=== PATIENT | female | born 1940 | race Caucasian/White ===

== ENCOUNTER 2021-05-28 18:44 | Inpatient (IN) ==
[2021-05-28] MEDS ORDERED: SODIUM CHLORIDE 0.9% 1000ML 1,000 ML IV STA (20:37)
[2021-05-28] MEDS ORDERED: SODIUM CHLORIDE 0.9% 500 ML IV STA (20:37)
[2021-05-28] MEDS ORDERED: PANTOprazole 80 MG in DEXTROSE 5% 100 ML IV ONE (21:00)
[2021-05-28] MEDS ORDERED: FAMOTIDINE 20MG/5ML IV PUSH IV STA (21:00)
[2021-05-28] MEDS ORDERED: PANTOPRAZOLE BOLUS/DRIP 1 EA IV STA (21:00)
[2021-05-28 21:18] LABS: Basophils # (auto) 0.01 K/uL (0-0.2); Basophils % (auto) 0.2 %; Eosinophils # (auto) 0.06 K/uL (0-0.5); Eosinophils % (auto) 0.9 %; Hematocrit (blood only) 29.7 % (37-47); Lymphocytes # (auto) 2.41 K/uL (1.2-3.4); Lymphocytes % (auto) 36.4 %; Mean Corpuscular Hemoglobin 32.7 pg (25-34); Mean Corpuscular Hgb Conc 33.7 g/dL (32-36); Mean Corpuscular Volume 97.1 fL (80-100); Mean Platelet Volume 9.5 fL (7.4-10.4); Monocytes # (auto) 0.62 K/uL (0.11-0.59); Monocytes % (auto) 9.4 %; Neutrophils # (auto) 3.52 K/uL (1.4-6.5); Neutrophils % (auto) 53.1 %; Platelet Count 223 K/uL (130-400); RDW Coefficient of Variation 12.7 % (11.5-14.5); RDW Standard Deviation 45.2 fL (36.4-46.3); Red Blood Count 3.06 M/uL (4.2-5.4); White Blood Count 6.62 K/uL (4.8-10.8)
[2021-05-28 21:30] LABS: Prothrombin Time 10.3 Seconds (9.0-12.0)
--- NOTE | 2021-05-28 21:32 | Emergency Department Note ---
Impression & Plan Upper gastrointestinal hemorrhage ED Provider Note INFORMANT: Patient ED PROVIDER(S): Aaron White MD CHIEF COMPLAINT: black stool PLAN: Disposition: admitted Condition: Good Outpatient prescription management: none Referral: none MEDICAL DECISION MAKING: Patient had cc of black stool. Heme positive rectal. Started on Protonix and pepcid. CBC revealed mild anemia. Elevated BUN on chem panel. Needs admission. Consult placed with Dr. Diaz. Patient and family educated. Pt admitted. Triage Nursing notes reviewed and agree them. Vital Signs: reviewed and remarkable for tachycardia Differential diagnosis: Diverticulosis, AVM, coagulopathy, colitis, inflammatory bowel disease, malignancy, Norma-Frank tear, esophagitis, peptic ulcer disease, variceal bleed, gastritis, epistaxis, fissure, hemorrhoids, as well as other pathologies. Diagnostics interpreted by me: ECG: Rate:97 Rhythm:NSR [place]:nml QRS:nml ST segements:nml Other:no pac or pvc Cardiac Monitoring: Cardiac monitoring ordered by me: The patient was placed on continuous cardiac monitoring and observed. It revealed a ST at 121 beats per minute without ectopy or evidence of dysrhythmia. Imaging studies: CT abd consistent with enteritis. HPI: The patient is a 81 year old female who presents to the Emergency Room with complaints of black stool. This started this morning and is persisting throughout the day. The patient also notes the following associated symptoms, feeling mildly weak and bloated. The patient has found no relieving factors. Current pain is rated as 0/10. Patient's history of gastritis. She takes a PPI occasionally. Denies any other NSAID use. Does take aspirin. No anticoagulati on. Pt denies LOC, headache, fevers, chills, diaphoresis, visual changes, neck pain, chest pain, breathing difficulties, nausea, vomiting, abdominal pain, back pain, hematochezia, urinary symptoms, numbness, lymphadenopathy, rash, or other complaints. ROS: See above HPI for pertinent positives & negatives. A total of 10 systems reviewed and were otherwise negative. PAST MEDICAL HISTORY:See Below , gastritis PAST SURGICAL HISTORY:See Below, FAMILY HISTORY:See Below SOCIAL HISTORY:See Below, non-smoker HOME MEDICATIONS:See Below ALLERGIES:See Below VITALS:See Below PHYSICAL EXAMINATION: GENERAL: Awake, alert, tired-appearing, in no distress HENT: Normocephalic, atraumatic. Oropharynx unremarkable. EYES: Normal conjunctiva. Sclera non-icteric. NECK: Inspection normal. Non-tender. Supple. No nuchal rigidity. FROM. No masses. RESPIRATORY: Clear to auscultation. No wheezes. No rales. Normal respiratory effort. CARDIAC: Borderline tachycardic rate. Normal rhythm. No murmurs. No rubs. Extremities warm and well perfused. Pulses equal. No JVD. GI: Soft, non-distended. No tenderness to palpation. No rebound or guarding. No masses. RECTAL: Black stool. Hemoccult positive.. MUSCULOSKELETAL: Atraumatic. Chest examination reveals no tenderness. The back is symmetrical on inspection without obvious abnormality. There is no CVA tenderness to palpation. No joint edema. LOWER EXTREMITIES: Calves are equal size bilaterally and non-tender. No edema. No discoloration. NEURO: Normal sensorium. No sensory or motor deficits noted. SKIN: No rash or jaundice noted. Aaron White MD Past Med/Surg History Social History Smoking Status: Never smoker Hx Alcohol Use: Yes Hx Substance Use: No Preferred Language: Tunisian Communication Ability: Effective [employer] Required: No Beliefs That Will Affect Care: None Current Living Situation: Alone Other Information That Helps Us Care for You: No Feels Safe at Home: Yes Safety Concerns: Feels Safe At This Time Assistive Devices: Glasses Allergies Allergies Allergy/AdvReac Type Severity Reaction Status Date / Time STEROIDS Allergy Unknown Uncoded 05/28/21 22:26 Home Meds Home Medications Medication Instructions Recorded Confirmed aspirin 81 mg tablet,delayed 81 mg PO DAILY 05/28/21 05/28/21 release atorvastatin 20 mg tablet 20 mg PO DAILY 05/28/21 05/28/21 calcium carbonate 600 mg calcium 600 mg PO DAILY 05/28/21 05/28/21 (1,500 mg) tablet ergocalciferol (vitamin D2) 1,250 1,250 mcg PO WK 05/28/21 05/28/21 mcg (50,000 unit) capsule (Vitamin D2) garlic 1,000 mg capsule 1,000 mg PO BID 05/28/21 05/28/21 glucosamine-chondroitin 250 mg-200 1 tab PO DAILY 05/28/21 05/28/21 mg tablet (Osteo Bi-Flex) meloxicam 15 mg tablet 15 mg PO DAILY 05/28/21 05/28/21 omega-3 fatty acids 0 mg PO DAILY 05/28/21 05/28/21 Results & Data (ED) Vital Signs Vital Signs - 24 hr 05/28/21 19:02 05/28/21 20:41 05/28/21 21:38 Temperature 37 C Temperature Source Temporal Artery Scan Pulse Rate 127 H 88 Pulse Rate [Brachial] 88 Respiratory Rate 18 20 20 Respiratory Effort / Characteristics Non-Labored Spontaneous Respiratory Depth Normal Respiratory Pattern Regular Blood Pressure 133/71 Blood Pressure [Left Arm] 148/69 H Blood Pressure Mean 91 Blood Pressure Mean [Left Arm] 95 Blood Pressure Position Sitting Pulse Oximetry 100 100 95 Oxygen Delivery Method Room Air Room Air Room Air Sepsis Recent Fever Within 48 Hours No Sepsis New/Unexplained Change in Mental Status No Sepsis Action Taken by Nursing No Action Required 05/28/21 22:30 Temperature Temperature Source Pulse Rate Pulse Rate [Brachial] 99 H Respiratory Rate 20 Respiratory Effort / Characteristics Respiratory Depth Respiratory Pattern Blood Pressure Blood Pressure [Left Arm] 148/69 H Blood Pressure Mean Blood Pressure Mean [Left Arm] 95 Blood Pressure Position Pulse Oximetry 98 Oxygen Delivery Method Sepsis Recent Fever Within 48 Hours Sepsis New/Unexplained Change in Mental Status Sepsis Action Taken by Nursing Laboratory Data Result diagrams: 05/29/21 11:02 05/29/21 05:18 Lab Results 05/28/21 05/28/21 05/28/21 Range/Units 20:51 20:51 20:51 WBC 6.62 (4.8-10.8) K/uL RBC 3.06 L (4.2-5.4) M/uL Hgb 10.0 L (12.0-16.0) g/dL Hct 29.7 L (37-47) % MCV 97.1 (80-100) fL MCH 32.7 (25-34) pg MCHC 33.7 (32-36) g/dL RDW Std Deviation 45.2 (36.4-46.3) fL RDW Coeff of Stan 12.7 (11.5-14.5) % Plt Count 223 (130-400) K/uL MPV 9.5 (7.4-10.4) fL Immature Gran % (Auto) 0.0 % Neut % (Auto) 53.1 % Lymph % (Auto) 36.4 % [place] % (Auto) 9.4 % Eos % (Auto) 0.9 % Baso % (Auto) 0.2 % Neut # (Auto) 3.52 (1.4-6.5) K/uL Lymph # (Auto) 2.41 (1.2-3.4) K/uL [place] # (Auto) 0.62 H (0.11-0.59) K/uL Eos # (Auto) 0.06 (0-0.5) K/uL Baso # (Auto) 0.01 (0-0.2) K/uL Immature Gran # (Auto) 0.00 (0.00-0.02) K/uL PT 10.3 (9.0-12.0) Seconds INR 1.0 (0.9-1.1) Sodium 139 (136-145) mmol/L Potassium 4.3 (3.5-5.1) mmol/L Chloride 109 H (98-107) mmol/L Carbon Dioxide 24 (21-32) mmol/L Anion Gap 6.0 (3-11) BUN 48 H (7-18) mg/dl Creatinine 0.83 (0.6-1.2) mg/dl Est Cr Clr Drug Dosing 47.1 ml/min Est GFR ( Amer) 76.6 ml/min Est GFR (Non-Af Amer) 66.1 ml/min BUN/Creatinine Ratio 58.1 H (10-20) Glucose 108 H (70-99) mg/dl Lactate (0.4-2.0) mmol/L Calcium 9.3 (8.5-10.1) mg/dl Total Bilirubin 0.5 (0.2-1) mg/dl AST 23 (15-37) U/L ALT 23 (12-78) U/L Alkaline Phosphatase 57 (45-117) U/L Total Protein 6.8 (6.4-8.2) gm/dl Albumin 3.5 (3.4-5.0) gm/dl Globulin 3.3 (2.5-4.0) gm/dl Albumin/Globulin Ratio 1.1 (0.9-2) Lipase 114 (73-393) U/L Urine Color Urine Appearance (Clear) Urine pH (4.5-7.5) Ur Specific [place] (1.000-1.030) Urine Protein (Negative) Urine Glucose (UA) (Negative) Urine Ketones (Negative) Urine Blood (Negative) Urine Nitrite (Negative) Urine Bilirubin (Negative) Urine Urobilinogen (Negative) Ur Leukocyte Esterase (Negative) Urine WBC (Auto) (0-5) /hpf Urine RBC (Auto) (0-4) /hpf U Hyaline Cast (Auto) (0-5) /lpf U Epithel Cells (Auto) (0-5) /lpf Urine Bacteria (Auto) (Negative) COVID-19 Eval Order SARS-CoV-2 (PCR) (Negative) Blood Type Antibody Screen Crossmatch 05/28/21 05/28/21 05/28/21 Range/Units 20:51 21:05 21:05 WBC (4.8-10.8) K/uL RBC (4.2-5.4) M/uL Hgb (12.0-16.0) g/dL Hct (37-47) % MCV (80-100) fL MCH (25-34) pg MCHC (32-36) g/dL RDW Std Deviation (36.4-46.3) fL RDW Coeff of Stan (11.5-14.5) % Plt Count (130-400) K/uL MPV (7.4-10.4) fL Immature Gran % (Auto) % Neut % (Auto) % Lymph % (Auto) % [place] % (Auto) % Eos % (Auto) % Baso % (Auto) % Neut # (Auto) (1.4-6.5) K/uL Lymph # (Auto) (1.2-3.4) K/uL [place] # (Auto) (0.11-0.59) K/uL Eos # (Auto) (0-0.5) K/uL Baso # (Auto) (0-0.2) K/uL Immature Gran # (Auto) (0.00-0.02) K/uL PT (9.0-12.0) Seconds INR (0.9-1.1) Sodium (136-145) mmol/L Potassium (3.5-5.1) mmol/L Chloride (98-107) mmol/L Carbon Dioxide (21-32) mmol/L Anion Gap (3-11) BUN (7-18) mg/dl Creatinine (0.6-1.2) mg/dl Est Cr Clr Drug Dosing ml/min Est GFR ( Amer) ml/min Est GFR (Non-Af Amer) ml/min BUN/Creatinine Ratio (10-20) Glucose (70-99) mg/dl Lactate 1.3 (0.4-2.0) mmol/L Calcium (8.5-10.1) mg/dl Total Bilirubin (0.2-1) mg/dl AST (15-37) U/L ALT (12-78) U/L Alkaline Phosphatase (45-117) U/L Total Protein (6.4-8.2) gm/dl Albumin (3.4-5.0) gm/dl Globulin (2.5-4.0) gm/dl Albumin/Globulin Ratio (0.9-2) Lipase (73-393) U/L Urine Color Urine Appearance (Clear) Urine pH (4.5-7.5) Ur Specific [place] (1.000-1.030) Urine Protein (Negative) Urine Glucose (UA) (Negative) Urine Ketones (Negative) Urine Blood (Negative) Urine Nitrite (Negative) Urine Bilirubin (Negative) Urine Urobilinogen (Negative) Ur Leukocyte Esterase (Negative) Urine WBC (Auto) (0-5) /hpf Urine RBC (Auto) (0-4) /hpf U Hyaline Cast (Auto) (0-5) /lpf U Epithel Cells (Auto) (0-5) /lpf Urine Bacteria (Auto) (Negative) COVID-19 Eval Order Covid19 at [facility] SARS-CoV-2 (PCR) NEGATIVE (Negative) Blood Type Antibody Screen Crossmatch 05/28/21 05/28/21 Range/Units 21:37 21:51 WBC (4.8-10.8) K/uL RBC (4.2-5.4) M/uL Hgb (12.0-16.0) g/dL Hct (37-47) % MCV (80-100) fL MCH (25-34) pg MCHC (32-36) g/dL RDW Std Deviation (36.4-46.3) fL RDW Coeff of Stan (11.5-14.5) % Plt Count (130-400) K/uL MPV (7.4-10.4) fL Immature Gran % (Auto) % Neut % (Auto) % Lymph % (Auto) % [place] % (Auto) % Eos % (Auto) % Baso % (Auto) % Neut # (Auto) (1.4-6.5) K/uL Lymph # (Auto) (1.2-3.4) K/uL [place] # (Auto) (0.11-0.59) K/uL Eos # (Auto) (0-0.5) K/uL Baso # (Auto) (0-0.2) K/uL Immature Gran # (Auto) (0.00-0.02) K/uL PT (9.0-12.0) Seconds INR (0.9-1.1) Sodium (136-145) mmol/L Potassium (3.5-5.1) mmol/L Chloride (98-107) mmol/L Carbon Dioxide (21-32) mmol/L Anion Gap (3-11) BUN (7-18) mg/dl Creatinine (0.6-1.2) mg/dl Est Cr Clr Drug Dosing ml/min Est GFR ( Amer) ml/min Est GFR (Non-Af Amer) ml/min BUN/Creatinine Ratio (10-20) Glucose (70-99) mg/dl Lactate (0.4-2.0) mmol/L Calcium (8.5-10.1) mg/dl Total Bilirubin (0.2-1) mg/dl AST (15-37) U/L ALT (12-78) U/L Alkaline Phosphatase (45-117) U/L Total Protein (6.4-8.2) gm/dl Albumin (3.4-5.0) gm/dl Globulin (2.5-4.0) gm/dl Albumin/Globulin Ratio (0.9-2) Lipase (73-393) U/L Urine Color Yellow Urine Appearance Clear (Clear) Urine pH 6.0 (4.5-7.5) Ur Specific [place] 1.004 (1.000-1.030) Urine Protein Negative (Negative) Urine Glucose (UA) Negative (Negative) Urine Ketones Negative (Negative) Urine Blood Negative (Negative) Urine Nitrite Negative (Negative) Urine Bilirubin Negative (Negative) Urine Urobilinogen Negative (Negative) Ur Leukocyte Esterase Trace H (Negative) Urine WBC (Auto) 1-5 (0-5) /hpf Urine RBC (Auto) 0-4 (0-4) /hpf U Hyaline Cast (Auto) 1-5 (0-5) /lpf U Epithel Cells (Auto) 5-10 H (0-5) /lpf Urine Bacteria (Auto) Negative (Negative) COVID-19 Eval Order SARS-CoV-2 (PCR) (Negative) Blood Type O Positive Antibody Screen NEGATIVE Crossmatch See Detail Administered Medications Pantoprazole Sodium 40 mg/ (Dextrose) 100 mls @ 20 mls/hr IV Q5H PURVI Stop: 06/27/21 21:29 Last Admin: 05/29/21 10:32 Dose: 8 mg/hr, 20 mls/hr Documented by: [id number] Infusion: 05/29/21 10:32 Dose: 8 mg/hr, 20 mls/hr Documented by: [id number] Admin: 05/29/21 05:38 Dose: 8 mg/hr, 20 mls/hr Documented by: [id number] Infusion: 05/29/21 05:38 Dose: 8 mg/hr, 20 mls/hr Documented by: [id number] Admin: 05/29/21 01:33 Dose: 8 mg/hr, 20 mls/hr Documented by: [id number] Infusion: 05/29/21 01:33 Dose: 8 mg/hr, 20 mls/hr Documented by: [id number] Admin: 05/28/21 22:05 Dose: 8 mg/hr, 20 mls/hr Documented by: [id number] Dextrose/Sodium Chloride (D5w And Nss) 1,000 mls @ 125 mls/hr IV .Q8H PURVI Stop: 06/28/21 01:25 Last Admin: 05/29/21 09:52 Dose: 125 mls/hr Documented by: [id number] Infusion: 05/29/21 09:26 Dose: 125 mls/hr Documented by: [id number] Admin: 05/29/21 01:26 Dose: 125 mls/hr Documented by: [id number] Discontinued Medications Famotidine (Famotidine 20mg/5ml Iv Push) 20 mg IV ONE STA Stop: 05/28/21 21:01 Last Admin: 05/28/21 21:35 Dose: 20 mg Documented by: [id number] Sodium Chloride (Nss 1000ml) 1,000 mls @ 125 mls/hr IV .Q8H STA Stop: 05/29/21 04:36 Last Infusion: 05/29/21 07:11 Dose: 0 mls/hr Documented by: [id number] Admin: 05/28/21 22:04 Dose: 125 mls/hr Documented by: [id number] Sodium Chloride (Nss) 500 mls @ 999 mls/hr IV .Q31M STA Stop: 05/28/21 21:07 Last Infusion: 05/28/21 22:19 Dose: 0 mls/hr Documented by: [id number] Admin: 05/28/21 21:19 Dose: 999 mls/hr Documented by: [id number] Pantoprazole Sodium (Protonix Bolus/Drip) 0 mls @ 1 mls/hr IV ONE STA Stop: 05/28/21 21:01 Last Admin: 05/29/21 03:40 Dose: Not Given Documented by: [id number] Pantoprazole Sodium 80 mg/ (Dextrose) 120 mls @ 400 mls/hr IV NOW ONE Stop: 05/28/21 21:17 Last Infusion: 05/28/21 22:18 Dose: 0 mls/hr Documented by: [id number] Admin: 05/28/21 21:35 Dose: 400 mls/hr Documented by: [id number] Imaging Data Radiologist's Impression: Abdomen/Pelvis CT 05/28/21 20:[address] WITHOUT CONTRAST CT DOSE: 257.46 mGy.cm HISTORY: Generalized abd pain, melena TECHNIQUE: Multiaxial CT images of the abdomen and pelvis were performed without contrast. A dose lowering technique was utilized adhering to the principles of ALARA. COMPARISON STUDY: None. FINDINGS: Punctate calcified granuloma within the left lower lobe. Otherwise, the lung bases are clear. No suspicious lytic or blastic osseous lesions. The unenhanced liver, spleen, adrenal glands, and pancreas are unremarkable. No renal stones or hydronephrosis. No retroperitoneal lymphadenopathy. Normal caliber abdominal aorta with mild calcified plaque. Questionable increased density layering within the gallbladder. This could represent small stones or artifact. The bladder, uterus, and bilateral adnexa are within normal limits. No pelvic free fluid. Suboptimal evaluation for bowel pathology due to the lack of intravenous and oral contrast. Colonic diverticulosis. No evidence for acute diverticulitis. The appendix is not identified and reportedly surgically absent. Mild thickening involving a jejunal loop within the left side of the abdomen concerning for an enteritis. There are few mildly dilated gas and fluid-filled loops of small bowel within the midabdomen. No definite transition point. IMPRESSION: 1. Mildly thickened long segment of jejunum likely representing an enteritis within the left side of the abdomen. 2. There are few mildly dilated gas and fluid-filled loops of small bowel within the midabdomen. No definite transition point. Therefore, this could represent an ileus or possibly a low-grade partial small bowel obstruction. Consider follow- up abdomen and pelvis CT if the patient's symptoms progress. 3. Possible cholelithiasis. No gallbladder wall thickening. ACT 112: Negative or not required by law. Electronically signed by: Aleks Islas M.D. 05/29/2021 8:19 AM Discharge Plan Visit Data Chief Complaint: GI Assessment Stated Complaint: BLACK LIQUID STOOL, ABD DISCOMFORT ED Provider: Aaron White Discharge Problem: Upper gastrointestinal hemorrhage Patient Disposition: Admitted As Inpatient Discharge Instructions Interventions: ED Discharge Assessment Last Done: 05/29/21 01:06
[2021-05-28 21:35] LABS: Albumin Level 3.5 gm/dl (3.4-5.0); BUN Creatinine Ratio 58.1 (10-20); Calcium 9.3 mg/dl (8.5-10.1); Creatinine Clr Calc Pharmacy 47.1 ml/min; Est GFR (African American) 76.6 ml/min; Est GFR (Non-African American) 66.1 ml/min; Potassium 4.3 mmol/L (3.5-5.1)
[2021-05-28 21:38] LABS: Albumin Globulin Ratio 1.1 (0.9-2); Bilirubin,Total 0.5 mg/dl (0.2-1); Globulin 3.3 gm/dl (2.5-4.0); Total Protein 6.8 gm/dl (6.4-8.2)
[2021-05-28] MEDS: PANTOprazole 40 MG in DEXTROSE 5% 100 ML IV SCH (22:05)
[2021-05-28 22:07] LABS: Appearance Urine Clear (Clear); Bacteria Urine Automated Negative (Negative); Bilirubin Urine Negative (Negative); Blood Urine Negative (Negative); Color Urine Yellow; Glucose Urine UA Negative (Negative); Ketones Urine Negative (Negative); Leukocyte Esterase Urine Trace (Negative); Nitrite Urine Negative (Negative); Protein Urine Negative (Negative); RBC Urine Automated 0-4 /hpf (0-4); Specific Gravity Urine 1.004 (1.000-1.030); Urobilinogen Urine Negative (Negative)
[2021-05-29] MEDS: D5W AND NSS 1,000 ML IV SCH ×2 (01:26→09:52)
[2021-05-29] MEDS ORDERED: SODIUM CHLORIDE 0.9% 250 ML IV PRN ×2 (01:26→22:45)
[2021-05-29] MEDS ORDERED: ONDANSETRON INJ 2 MG/ML 2 ML VIAL IV PRN (01:26)
[2021-05-29] MEDS ORDERED: MoRPHine SULFATE 2 MG/ML CARP IV PRN (01:26)
[2021-05-29] MEDS ORDERED: NITROGLYCERIN SL 0.4 MG/TAB TAB SL PRN (01:26)
[2021-05-29] MEDS: PANTOprazole 40 MG in DEXTROSE 5% 100 ML IV SCH ×3 (01:33→10:32)
--- NOTE | 2021-05-29 02:38 | History and Physical Report ---
DATE OF ADMISSION: 05/28/2021. CHIEF COMPLAINT: GI bleed. HISTORY OF PRESENT ILLNESS: This is an 81-year-old female with past medical history significant for hyperlipidemia, history of mitral valve disorder, coronary atherosclerosis of [place] coronary artery, presents with GI bleed. The patient is from [facility]. She is visiting [place] for [employer]. Today when she woke up, she felt dizzy. When she went to the bathroom, she almost passed out, and at that time she had noticed some small black stools, but later again she had a loose black stool and a couple more episodes and [facility] she was advised to come here. Currently, resting comfortably and hemodynamically stable. Complains of abdominal cramps. Hemoglobin is 10. We do not have any baseline labs. Denies any chest pain, no shortness of breath, no cough, no fevers. Currently no headache, no blurred visions, no earache, no runny nose, no sore throat. Has some nausea. Otherwise, before this episode her bowels were normal, normal bladder movements. She has osteoarthritis of the knees. She has difficulty to climb stairs . Walking in the level floor is fine. ALLERGIES: STEROIDS. PAST MEDICAL HISTORY: As mentioned above. PAST SURGICAL HISTORY: Status post cardiac catheterization, appendectomy, cyst removal of the breast. MEDICATIONS: Currently aspirin 81 mg p.o. daily, atorvastatin 20 mg p.o. daily, calcium carbonate 600 mg p.o. daily, vitamin D2 1250 mcg mg p.o. weekly, garlic 1000 mg p.o. b.i.d., glucosamine chondroitin 1 tablet p.o. daily, meloxicam 15 mg p.o. daily, fish oil 1 capsule daily. FAMILY HISTORY: Significant for father had bladder cancer and at the age of 98, mother had breast cancer, grandfather and uncle have colorectal cancer. SOCIAL HISTORY: , currently lives alone. No smoking. Alcohol occasionally. No drug use. REVIEW OF SYSTEMS: As per HPI. Rest of the review of systems is negative. PHYSICAL EXAMINATION: GENERAL: The patient is of moderate build, not in acute distress. VITAL SIGNS: Temperature 37, pulse 99, respiratory rate 20, blood pressure 148/69, oxygen 98% on room air. HEENT: Pupils equal, round and reactive to light. Oral mucosa dry. NECK: No JVD. No neck masses. CARDIOVASCULAR: S1 and S2 heard. Regular rate and rhythm. No murmur, no gallop. RESPIRATORY SYSTEM: Normal AP diameter. No accessory muscle use. No wheezing, no crackles. ABDOMEN: Soft, bowel sounds present, nontender, no distention. CENTRAL NERVOUS SYSTEM: Cranial nerves II-XII grossly intact, nonfocal. EXTREMITIES: No edema, no erythema. LABORATORY DATA: WBC 6.6, hemoglobin 10, hematocrit 29.7, platelets 223. PT 10.3, INR 1. Sodium 139, potassium 4.6, chloride 109, bicarbonate 24, BUN 48, creatinine 0.8, serum glucose 108. Lactate 1.3, calcium 9.3, total bilirubin 0.5, AST 23, ALT 23, alkaline phosphatase 57, lipase 114. Urinalysis, trace leukocyte esterase, negative for bacteria. SARS-CoV-2 PCR negative. IMAGING DATA: CT of abdomen and pelvis without contrast,preliminary report: wall thickening jejunal small bowel loops in the left abdomen concerning for enteritis, no small-bowel obstruction. Appendix not definitely visualized. No CT evidence of acute appendicitis. Evaluation of stomach is limited by underdistention . No hydronephrosis, stone. Atherosclerotic change of the vasculature. No aortic aneurysm. Mild scoliosis. Distended bladder. No significant bladder wall thickening or stone. ASSESSMENT AND PLAN: This is an 81-year-old female who presents with gastrointestinal bleed. 1. Gastrointestinal bleed, melena: The patient says she has gastritis and she takes Prilosec occasionally on and off. She is on aspirin and meloxicam for arthritis. Will hold these medications and ER started on Protonix drip, which will be continued. Blood consent signed. Will follow H and H q. 6 hours.Hold 2 units of prbc.Fluids. Monitor in the tele floor. Consult GI in the a.m. The patient recently had colonoscopy 3 or 4 years ago. 2. History of hyperlipidemia: Hold statin for now. 3. History of osteoarthritis: Holding meloxicam. If needed, will give Tylenol or tramadol. 4. History of atherosclerosis: Holding aspirin. 5. History of mitral valve disease: Follows with cardiology, seems mild. 6. Deep venous thrombosis prophylaxis: Sequential compression devices for now. DISPOSITION: Closely monitor in the tele floor. Level 1 full code. Expect to discharge home and follow up with family doctor. Job ID: [id number] DARWIN
[2021-05-29 05:31] LABS: Basophils # (auto) 0.02 K/uL (0-0.2); Basophils % (auto) 0.4 %; Eosinophils # (auto) 0.19 K/uL (0-0.5); Eosinophils % (auto) 3.4 %; Hematocrit (blood only) 24.6 % (37-47); Hemoglobin 8.3 g/dL (12.0-16.0); Lymphocytes # (auto) 2.09 K/uL (1.2-3.4); Lymphocytes % (auto) 37.9 %; Mean Corpuscular Hemoglobin 32.4 pg (25-34); Mean Corpuscular Hgb Conc 33.7 g/dL (32-36); Mean Corpuscular Volume 96.1 fL (80-100); Mean Platelet Volume 8.9 fL (7.4-10.4); Monocytes # (auto) 0.88 K/uL (0.11-0.59); Monocytes % (auto) 15.9 %; Neutrophils # (auto) 2.34 K/uL (1.4-6.5); Neutrophils % (auto) 42.4 %; Platelet Count 182 K/uL (130-400); RDW Coefficient of Variation 12.9 % (11.5-14.5); RDW Standard Deviation 44.8 fL (36.4-46.3); Red Blood Count 2.56 M/uL (4.2-5.4); White Blood Count 5.52 K/uL (4.8-10.8)
[2021-05-29 05:56] LABS: BUN Creatinine Ratio 42.3 (10-20); Calcium 8.4 mg/dl (8.5-10.1); Creatinine Clr Calc Pharmacy 46.8 ml/min; Est GFR (African American) 76.6 ml/min; Est GFR (Non-African American) 66.1 ml/min; Magnesium 2.2 mg/dl (1.8-2.4); Potassium 3.8 mmol/L (3.5-5.1)
--- NOTE | 2021-05-29 08:21 | CT Scan Report ---
ABDOMEN AND PELVIS CT WITHOUT CONTRAST CT DOSE: 257.46 mGy.cm HISTORY: Generalized abd pain, melena TECHNIQUE: Multiaxial CT images of the abdomen and pelvis were performed without contrast. A dose lo wering technique was utilized adhering to the principles of ALARA. COMPARISON STUDY: None. FINDINGS: Punctate calcified granuloma within the left lower lobe. Otherwise, the lung bases are wagner r. No suspicious lytic or blastic osseous lesions. The unenhanced liver, spleen, adrenal glands, and pancreas are unremarkable. No renal stones or hydronephrosis. No retroperitoneal lymphadenopathy. Nor mal caliber abdominal aorta with mild calcified plaque. Questionable increased density layering withi n the gallbladder. This could represent small stones or artifact. The bladder, uterus, and bilateral adnexa are within normal limits. No pelvic free fluid. Suboptimal evaluation for bowel pathology due to the lack of intravenous and oral contrast. Colonic diverticulosis. No evidence for acute diverticu litis. The appendix is not identified and reportedly surgically absent. Mild thickening involving a j ejunal loop within the left side of the abdomen concerning for an enteritis. There are few mildly dil ated gas and fluid-filled loops of small bowel within the midabdomen. No definite transition point. IMPRESSION: 1. Mildly thickened long segment of jejunum likely representing an enteritis within the left side of the abdomen. 2. There are few mildly dilated gas and fluid-filled loops of small bowel within the midabdomen. No d efinite transition point. Therefore, this could represent an ileus or possibly a low-grade partial sm all bowel obstruction. Consider follow-up abdomen and pelvis CT if the patient's symptoms progress. 3. Possible cholelithiasis. No gallbladder wall thickening. ACT 112: Negative or not required by law. Electronically signed by: Aleks Islas M.D. 05/29/2021 8:19 AM
--- NOTE | 2021-05-29 08:39 | Anesthesiology Consultation ---
Date of Service May 29, 2021 Assessment & Plan (1) Encounter for pre-operative examination: Chart Review Chart Review: Acceptable Risk for Surgery, Patient NOT seen in Pre Admission Testing and entry level marketing assistant initiated Consults Requested none History Surgery Operation Date: 05/29/21 16:00 Proposed Procedures p Esophagogastroduodenoscopy Dr Da Roberson, DO Height/Weight Height: 5 ft 2 in Weight: 64.2 kg Allergies Allergy/AdvReac Type Severity Reaction Status Date / Time STEROIDS Allergy Unknown Uncoded 05/28/21 22:26 Medications Home Medications Medication Instructions Recorded Confirmed Last Taken aspirin 81 mg tablet,delayed 81 mg PO DAILY 05/28/21 05/28/21 Unknown release atorvastatin 20 mg tablet 20 mg PO DAILY 05/28/21 05/28/21 Unknown calcium carbonate 600 mg calcium 600 mg PO DAILY 05/28/21 05/28/21 Unknown (1,500 mg) tablet ergocalciferol (vitamin D2) 1,250 1,250 mcg PO WK 05/28/21 05/28/21 Unknown mcg (50,000 unit) capsule (Vitamin D2) garlic 1,000 mg capsule 1,000 mg PO BID 05/28/21 05/28/21 Unknown glucosamine-chondroitin 250 mg-200 1 tab PO DAILY 05/28/21 05/28/21 Unknown mg tablet (Osteo Bi-Flex) meloxicam 15 mg tablet 15 mg PO DAILY 05/28/21 05/28/21 Unknown omega-3 fatty acids 0 mg PO DAILY 05/28/21 05/28/21 Unknown Active Medications Generic Name Dose Route Start Last Admin Trade Name Freq PRN Reason Stop Dose Admin Pantoprazole Sodium 40 mg/ 100 mls @ 20 mls/hr 05/28/21 21:30 05/29/21 05:38 Dextrose IV 06/27/21 21:29 8 mg/hr Q5H PURVI 20 mls/hr Administration 8 MG/HR Dextrose/Sodium Chloride 1,000 mls @ 125 mls/hr 05/29/21 01:26 05/29/21 01:26 D5w And Nss IV 06/28/21 01:25 125 mls/hr .Q8H PURVI Administration Social History Smoking Status: Never smoker Hx Alcohol Use: Yes alcohol intake frequency: holidays/special occasions only Hx Substance Use: No Physical Exam Vital Signs Last Vital Signs Temp 36.4 C L 05/29/21 07:03 Pulse 92 H 05/29/21 07:03 Resp 18 05/29/21 07:03 BP 113/69 05/29/21 07:03 Pulse Ox 97 05/29/21 07:03 Testing Laboratory Results 05/29/21 05:18 05/29/21 05:18 PT 10.3 Seconds (9.0-12.0) 05/28/21 20:51 INR 1.0 (0.9-1.1) 05/28/21 20:51 Urine Color Yellow 05/28/21 21:37 Urine Appearance Clear (Clear) 05/28/21 21:37 Urine pH 6.0 (4.5-7.5) 05/28/21 21:37 Ur Specific [place] 1.004 (1.000-1.030) 05/28/21 21:37 Urine Protein Negative (Negative) 05/28/21 21:37 Urine Glucose (UA) Negative (Negative) 05/28/21 21:37 Urine Ketones Negative (Negative) 05/28/21 21:37 Urine Nitrite Negative (Negative) 05/28/21 21:37 Ur Leukocyte Esterase Trace (Negative) H 05/28/21 21:37 Urine WBC (Auto) 1-5 /hpf (0-5) 05/28/21 21:37 Urine RBC (Auto) 0-4 /hpf (0-4) 05/28/21 21:37 U Hyaline Cast (Auto) 1-5 /lpf (0-5) 05/28/21 21:37 U Epithel Cells (Auto) 5-10 /lpf (0-5) H 05/28/21 21:37 Urine Bacteria (Auto) Negative (Negative) 05/28/21 21:37 Blood Type O Positive 05/28/21 21:51 Antibody Screen NEGATIVE 05/28/21 21:51 Electrocardiogram Date: 05/28/2128-May-2021 21:02:35 [facility]-EDSTAT ROUTINE RETRIEVAL Poor data quality, interpretation may be adversely affected Normal sinus rhythm Increased R/S ratio in V1, consider early transition or posterior infarct Abnormal ECG No previous ECGs available
--- NOTE | 2021-05-29 10:19 | Gastrointestinal Consultation ---
Date of Consultation May 29, 2021 Assessment & Plan (1) Melena: Careful monitoring of BMs. Keep NPO. (2) Acute blood loss anemia: Agree with pantoprazole drip. Plan for EGD today. Further recommendations to follow EGD. Supervising Physician Co-Signing Physician Notes I saw and evaluated the patient. We were consulted for several days of dark sticky stool in the setting of a new anemia. The patient reports that she has had abdominal fullness for at least 1 month but denies having nausea vomiting fevers nor chills. She has had several upper endoscopies in the past for abdominal discomfort and gastritis. She does not recall having any surgeries on her stomach nor peptic ulcer disease. She also notes having a prior appendectomy Physical examination No obvious distress, pleasant appearing female No abdominal tenderness Impression: Patient presenting with signs and symptoms suggestive of Gastrointestinal bleeding. We will proceed with upper endoscopy today for further evaluation. The risks and benefits of the procedure have been discussed with the patient to include bleeding, infection, perforation, pain and need for follow-up studies. History of Present Illness Reason for Consultation: Melena Requesting Physician: Dr. Diaz Attending Physician: Elian Ashley MD History of Present Illness Ms. Kareen Fuchs is an 81 yr old female pt of Dr. Deluca (in the [place] area). She was in the area for [place]. Yesterday she experienced abdominal cramping then passed 2 black liquid bowel movements and experienced dizziness weakness and palpitations. She was brought to the ED by her brother. On arrival, she was found to be anemic with hemoglobin of 10 which is further decreased to 8.3. BUN is mildly elevated at 35. CT suggestive mild jejunitis and mildly dilated small bowel. She continued to have 2 small bowel movements after the CT scan, thus obstruction is extremely unlikely. On exam, abdomen is soft and not distended. She takes 1 meloxicam daily, she also takes an aspirin 3 times a week (unsure the dosage). Though she has occasional "indigestion," she is not on any regular use of acid reducers. She tells me that she had been prescribed a acid rn lpn cna at one point but only takes it on an as-needed basis and is unsure what the dosages is. She believes the medication is Prilosec. Allergies Allergy/AdvReac Type Severity Reaction Status Date / Time STEROIDS Allergy Unknown Uncoded 05/28/21 22:26 Home Medications Medication Instructions Recorded Confirmed Type aspirin 81 mg tablet,delayed 81 mg PO DAILY 05/28/21 05/28/21 History release atorvastatin 20 mg tablet 20 mg PO DAILY 05/28/21 05/28/21 History calcium carbonate 600 mg calcium 600 mg PO DAILY 05/28/21 05/28/21 History (1,500 mg) tablet ergocalciferol (vitamin D2) 1,250 1,250 mcg PO WK 05/28/21 05/28/21 History mcg (50,000 unit) capsule (Vitamin D2) garlic 1,000 mg capsule 1,000 mg PO BID 05/28/21 05/28/21 History glucosamine-chondroitin 250 mg-200 1 tab PO DAILY 05/28/21 05/28/21 History mg tablet (Osteo Bi-Flex) meloxicam 15 mg tablet 15 mg PO DAILY 05/28/21 05/28/21 History omega-3 fatty acids 0 mg PO DAILY 05/28/21 05/28/21 History Patient History Social History Smoking Status: Never smoker Hx Alcohol Use: Yes Hx Substance Use: No Preferred Language: Malian Communication Ability: Effective 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 A total of 12 systems reviewed, all others negative Physical Exam Constitutional: WD/WN, vitals as above Eyes: PERRL, conjunctivae normal, anicteric sclerae ENMT: external ear and nose normal, oropharynx normal Neck: trachea midline, no thyromegaly Respiratory: normal respiratory effort, lungs clear to auscultation Cardiovascular: RRR, no murmur, no edema Gastrointestinal (Abdomen): normal bowel sounds, soft, nontender, no hepatosplenomegaly Musculoskeletal: no cyanosis or clubbing, extremities motor strength 5/5 Skin: no rashes, warm and dry Neurologic: PERRL, EOMI, accommodation nl, no face palsy, no dysarthria Psychiatric: A+Ox3, euthymic affect Results & Data ([facility]) Vital Signs (Past 12 Hours) Vital Signs Temp Pulse Pulse Pulse Resp BP Pulse Ox 05/29/21 08:00 83 05/29/21 07:03 36.4 C L 92 H 18 113/69 97 05/29/21 03:23 36.7 C 83 18 124/72 99 05/29/21 02:14 104 H 05/29/21 01:20 36.8 C 112 H 20 139/63 97 05/29/21 00:43 89 20 111/47 L 98 05/28/21 22:30 99 H 20 148/69 H 98 Laboratory Results WBC 5.2, hemoglobin 10 on arrival now 8.3, HCT 24.6, platelets 182, NA 143, K3.8, BUN 35, CR 0.83. Diagnostic Findings CTAP with IV 05/28/21: 1. Mildly thickened long segment of jejunum likely representing an enteritis within the left side of the abdomen. 2. There are few mildly dilated gas and fluid-filled loops of small bowel within the midabdomen. No definite transition point. Therefore, this could represent an ileus or possibly a low-grade partial small bowel obstruction. Consider follow- up abdomen and pelvis CT if the patient's symptoms progress. 3. Possible cholelithiasis. No gallbladder wall thickening.
[2021-05-29 11:19] LABS: Hematocrit (blood only) 23.2 % (37-47); Hemoglobin 7.8 g/dL (12.0-16.0)
--- NOTE | 2021-05-29 11:52 | History & Physical Bridge Note ---
Date of Service May 29, 2021 History & Physical Bridge Note I have examined the patient, reviewed the History & Physical and in the interval since the performance of the History & Physical I have noted the following changes of clinical significance: no changes noted
--- NOTE | 2021-05-29 12:17 | GI REPORT ---
Patient Name: Kareen Fuchs Procedure Date: 05/29/2021 11:52 AM Date of : 1940 Admit Type: Inpatient Age: 81 Gender: Female Attending MD: Cecy Roberson DO Procedure: Upper GI endoscopy Providers: Cecy Roberson DO Referring MD: Elian Ashley Indications: Melena Medicines: Monitored Anesthesia Care Complications: No immediate complications. Estimated blood loss: Minimal. Estimated Blood Loss: Estimated blood loss was minimal. Procedure: Pre-Anesthesia Assessment: - Prior to the procedure, a History and Physical was performed, and patient medications, allergies and sensitivities were reviewed. The patient's tolerance of previous anesthesia was reviewed. - The risks and benefits of the procedure and the sedation options and risks were discussed with the patient. All questions were answered and informed consent was obtained. - Patient identification and proposed procedure were verified prior to the procedure by the physician, the nurse and the biomass power plant superintendent. The procedure was verified in the procedure room. - Pre-procedure physical examination revealed no contraindications to sedation. - ASA Grade Assessment: III - A patient with severe systemic disease. - After reviewing the risks and benefits, the patient was deemed in satisfactory condition to undergo the procedure. - The anesthesia plan was to use monitored anesthesia care (MAC). - Immediately prior to administration of medications, the patient was re-assessed for adequacy to receive sedatives. - The heart rate, respiratory rate, oxygen saturations, blood pressure, adequacy of pulmonary ventilation, and response to care were monitored throughout the procedure. - The physical status of the patient was re-assessed after the procedure. After obtaining informed consent, the endoscope was passed under direct vision. Throughout the procedure, the patient's blood pressure, pulse, and oxygen saturations were monitored continuously. The Scope was introduced through the mouth, and advanced to the third part of duodenum. The upper GI endoscopy was accomplished without difficulty. The patient tolerated the procedure well. Findings: The examined esophagus was normal. The Z-line was regular and was found 37 cm from the incisors. The gastric fundus and gastric body were normal. One non-obstructing non-bleeding cratered gastric ulcer with no stigmata of bleeding was found on the anterior wall of the gastric antrum. The lesion was 8 mm in largest dimension. The examined duodenum was normal. Impression: - Normal esophagus. - Z-line regular, 37 cm from the incisors. - Normal gastric fundus and gastric body. - Non-obstructing non-bleeding gastric ulcer with no stigmata of bleeding (Clean based ulcer). NSAID induced etiology. - Normal examined duodenum. Recommendation: - [facility] care. - Use Protonix (pantoprazole) 40 mg PO BID for 4 weeks then 1 time daily until follow-up endoscopy. - Repeat upper endoscopy in 3 months for surveillance (can be done by the patients normal GI Provider in [place]). - No aspirin, ibuprofen, naproxen, Mobic or other non-steroidal anti-inflammatory drugs for 6 weeks. Cecy Roberson D.O. Cecy Roberson, DO 05/29/2021 12:17:25 PM This report has been signed electronically. Note Initiated On: 05/29/2021 11:52 AM Number of Addenda: 0 I attest to the content of the Intraoperative Record and orders documented therein, exceptions below {[id number]}
--- NOTE | 2021-05-29 12:18 | Communication Note ---
Date of Service: May 29, 2021 Patient underwent upper endoscopy for evaluation of melena. She was found to have a clean-based ulcer of the gastric antrum which required no endoscopic intervention. Recommendations Advance diet as tolerated Protonix 40 mg twice daily for 4 weeks then 1 time daily thereafter Avoid use of nonsteroidals to include Mobic for 6 weeks to allow for ulcer healing Repeat upper endoscopy with the patient's normal GI provider in [place] to be done in 3 months Please call with any questions or concerns GI to sign off
--- NOTE | 2021-05-29 13:09 | Hospitalist Progress Note ---
Date of Service May 29, 2021 Assessment & Plan (1) Upper gastrointestinal hemorrhage: (2) Acute blood loss anemia: Plan: ASSESSMENT AND PLAN: This is an 81-year-old female who presents with gastrointestinal bleed. 1. Gastrointestinal bleed, melena: -- placed on Protonix drip -- s/p EGD: She was found to have a clean-based ulcer of the gastric antrum which required no endoscopic intervention. GI recommendations: Protonix 40 mg twice daily for 4 weeks then 1 time daily thereafter Avoid use of nonsteroidals to include Mobic for 6 weeks to allow for ulcer healing Repeat upper endoscopy with the patient's normal GI provider in [place] to be done in 3 months Acute Blood Loss Anemia -- secondary to above -- Hg 10, 8, 7.8, repeat Hg at 5pm -- Anemia panel 2. History of hyperlipidemia: Hold statin for now. 3. History of osteoarthritis: PRN Tylenol or tramadol. 4. History of atherosclerosis: Holding aspirin. 5. History of mitral valve disease: Follows with cardiology, seems mild. 6. Deep venous thrombosis prophylaxis: Sequential compression devices for now. Disposition possible d/c home tomorrow plan of care discussed with patient in detail and at length all questions answered she is understanding, agreeable, comfortable with the plan of care Admission and Anticipated Discharge Date Admission Date: May 28, 2021 Subjective ff up for GI bleed seen resting in bed, comfortable no abdominal pain, nausea/vomiting no chest pain, dyspnea, dizziness, palpitations no other symptoms Review of Systems Review of Systems: all noted and negative except for above Physical Exam Physical Exam: General- oriented x 3, not in distress, speaks in sentences with no effort or accessory muscle use Head- atraumatic Eyes- PERRL, EOMI, anicteric ENT- oropharynx clear Neck- supple, no JVD, no adenopathy, no thyromegaly; carotids +2/2, no bruits appreciated Lungs- clear to auscultation bilaterally, no rales/wheezes Heart- normal rate, regular rhythm; no murmur, no gallop, no rub appreciated Abdomen- normal bowel sounds, nondistended, soft, nontender, no masses or hepatosplenomegaly Extremities- no pretibial edema, no calf tenderness; peripheral pulses intact Neuro- alert, oriented x 3; CN 2-12 grossly intact; motor 5/5 bilaterally;sensation 100% on all extremities; no other gross focal neurologic deficits Skin- warm & dry Results & Data Results & Data ([facility]) Vital Signs (Past 12 Hours) Vital Signs Temp Pulse Pulse Pulse Resp BP BP 05/29/21 12:55 36.5 C 74 19 136/62 05/29/21 12:43 78 16 134/64 05/29/21 12:28 80 16 113/61 05/29/21 12:13 75 16 107/66 05/29/21 11:15 36.9 C 92 H 18 160/51 H 05/29/21 10:54 36.7 C 88 19 122/65 05/29/21 08:00 83 05/29/21 07:03 36.4 C L 92 H 18 113/69 05/29/21 03:23 36.7 C 83 18 124/72 05/29/21 02:14 104 H 05/29/21 01:20 36.8 C 112 H 20 139/63 Pulse Ox 05/29/21 12:55 96 05/29/21 12:43 98 05/29/21 12:28 97 05/29/21 12:13 97 05/29/21 11:15 98 05/29/21 10:54 99 05/29/21 08:00 05/29/21 07:03 97 05/29/21 03:23 99 05/29/21 02:14 05/29/21 01:20 97 all noted and reviewed including below
--- NOTE | 2021-05-29 13:12 | Anesthesiology Progress Note ---
Date of Service May 29, 2021 Anesthesia Post Procedure Vital Signs Vital Signs: Temp Pulse Pulse Pulse Resp BP BP 05/29/21 12:55 36.5 C 74 19 05/29/21 12:43 78 16 134/64 05/29/21 12:28 80 16 113/61 05/29/21 12:13 75 16 107/66 05/29/21 11:15 36.9 C 92 H 18 160/51 H 05/29/21 10:54 36.7 C 88 19 122/65 05/29/21 08:00 83 05/29/21 07:03 36.4 C L 92 H 18 113/69 05/29/21 03:23 36.7 C 83 18 124/72 05/29/21 02:14 104 H 05/29/21 01:20 36.8 C 112 H 20 139/63 05/29/21 00:43 89 20 111/47 L 05/28/21 22:30 99 H 20 148/69 H 05/28/21 21:38 88 20 05/28/21 20:41 88 20 148/69 H 05/28/21 19:02 37 C 127 H 18 133/71 BP Pulse Ox 05/29/21 12:55 136/62 96 05/29/21 12:43 98 05/29/21 12:28 97 05/29/21 12:13 97 05/29/21 11:15 98 05/29/21 10:54 99 05/29/21 08:00 05/29/21 07:03 97 05/29/21 03:23 99 05/29/21 02:14 05/29/21 01:20 97 05/29/21 00:43 98 05/28/21 22:30 98 05/28/21 21:38 95 05/28/21 20:41 100 05/28/21 19:02 100 Transfer of Care Handoff Completed per policy Notes Mental Status: alert / awake / arousable and participated in evaluation Patient Amnestic to Procedure: Yes Nausea / Vomiting: adequately controlled Pain: adequately controlled Airway Patency, RR, SpO2: stable & adequate BP & HR: stable & adequate Hydration State: stable & adequate Anesthetic Complications: no major complications apparent and Pt Satisfied with anesthetic care
--- NOTE | 2021-05-29 13:27 | Electrocardiogram Report ---
Test Reason : Blood Pressure : / mmHG Vent. Rate : 097 BPM Atrial Rate : 097 BPM P-R Int : 160 ms QRS Dur : 084 ms QT Int : 350 ms P-R-T Axes : -18 073 028 degrees QTc Int : 444 ms Poor data quality, interpretation may be adversely affected Normal sinus rhythm Increased R/S ratio in V1, consider early transition or posterior infarct Abnormal ECG No previous ECGs available Confirmed by Eduardo Lee ([id number]) on 05/29/2021 1:26:54 PM Referred By: REFERRED SELF Confirmed By:Eduardo Lee
[2021-05-29 16:59] LABS: Hematocrit (blood only) 24.6 % (37-47); Hemoglobin 8.2 g/dL (12.0-16.0)
[2021-05-29] MEDS: PANTOprazole 40 MG in SYRINGE 0 ML IV SCH (20:26)
[2021-05-29 22:41] LABS: Hematocrit (blood only) 22.9 % (37-47); Hemoglobin 7.8 g/dL (12.0-16.0)
[2021-05-30 07:13] LABS: Basophils # (auto) 0.04 K/uL (0-0.2); Basophils % (auto) 0.8 %; Eosinophils # (auto) 0.41 K/uL (0-0.5); Eosinophils % (auto) 8.2 %; Hemoglobin 9.2 g/dL (12.0-16.0); Lymphocytes # (auto) 2.13 K/uL (1.2-3.4); Lymphocytes % (auto) 42.9 %; Mean Corpuscular Hemoglobin 31.8 pg (25-34); Mean Corpuscular Hgb Conc 32.9 g/dL (32-36); Mean Corpuscular Volume 96.9 fL (80-100); Mean Platelet Volume 9.4 fL (7.4-10.4); Monocytes # (auto) 0.53 K/uL (0.11-0.59); Monocytes % (auto) 10.7 %; Neutrophils # (auto) 1.86 K/uL (1.4-6.5); Neutrophils % (auto) 37.4 %; Platelet Count 177 K/uL (130-400); RDW Coefficient of Variation 13.3 % (11.5-14.5); Red Blood Count 2.89 M/uL (4.2-5.4); White Blood Count 4.97 K/uL (4.8-10.8)
[2021-05-30 07:36] LABS: BUN Creatinine Ratio 22.4 (10-20); Calcium 8.4 mg/dl (8.5-10.1); Creatinine Clr Calc Pharmacy 51.1 ml/min; Est GFR (African American) 85.3 ml/min; Est GFR (Non-African American) 73.6 ml/min; Potassium 3.8 mmol/L (3.5-5.1)
[2021-05-30] MEDS: PANTOprazole 40 MG in SYRINGE 0 ML IV SCH (08:06)
--- NOTE | 2021-05-30 10:24 | Hospitalist Progress Note ---
Date of Service May 30, 2021 Assessment & Plan (1) Upper gastrointestinal hemorrhage: (2) Acute blood loss anemia: Plan: ASSESSMENT AND PLAN: This is an 81-year-old female who presents with gastrointestinal bleed. 1. Gastrointestinal bleed, melena: -- placed on Protonix drip -- s/p EGD: She was found to have a clean-based ulcer of the gastric antrum which required no endoscopic intervention. GI recommendations: Protonix 40 mg twice daily for 4 weeks then 1 time daily thereafter Avoid use of nonsteroidals to include Mobic for 6 weeks to allow for ulcer healing Repeat upper endoscopy with the patient's normal GI provider in [place] to be done in 3 months Acute Blood Loss Anemia -- secondary to above -- Hg 10, 8, 7.8 given 1 unit of PRBC -- Hg 9 -- iron level normal -- repeat CBC next week on ff up with PCP 2. History of hyperlipidemia -- on statin 3. History of osteoarthritis -- PRN Tylenol or tramadol. 4. History of atherosclerosis: Hold aspirin for at least 6 weeks 5. History of mitral valve disease: Follows with cardiology, seems mild. 6. Deep venous thrombosis prophylaxis: Sequential compression devices given. Disposition d/c home today if patient tolerates soft diet plan of care discussed with patient in detail and at length all questions answered she is understanding, agreeable, comfortable with the plan of care Admission and Anticipated Discharge Date Admission Date: May 28, 2021 Subjective ff up for Upper GI bleed seen resting in bed, comfortable states she feels tired this morning otherwise denies nausea, vomiting, abdominal pain tolerating clears well had 1 episode of melena overnight no chest pain, dyspnea, palpitations, dizziness no other symptoms Review of Systems Review of Systems: all noted and negative except for above Physical Exam Physical Exam: General- oriented x 3, not in distress, speaks in sentences with no effort or accessory muscle use Eyes- anicteric Neck- no JVD Lungs- clear breath sounds bilaterally, no rales/wheezes Heart- normal rate, regular rhythm; no murmurs Abdomen- normal bowel sounds, nondistended, soft, nontender Extremities- no pretibial edema, no calf tenderness Neuro- alert, oriented x 3; no gross focal neurologic deficits Skin- warm & dry Results & Data Results & Data ([facility]) Vital Signs (Past 12 Hours) Vital Signs Temp Pulse Pulse Resp BP BP BP 05/30/21 07:41 63 05/30/21 07:39 36.5 C 69 18 120/65 05/30/21 03:07 36.3 C L 75 16 117/64 05/30/21 02:22 37.1 C 75 16 117/57 L 05/30/21 01:45 108 H 05/30/21 01:10 36.8 C 80 16 118/60 05/30/21 00:10 37 C 75 16 151/80 H 05/29/21 23:40 79 05/29/21 23:39 36.9 C 76 16 139/82 05/29/21 23:24 36.9 C 80 16 120/53 L 05/29/21 23:07 36.9 C 85 16 122/70 05/29/21 23:02 79 Pulse Ox 05/30/21 07:41 05/30/21 07:39 100 05/30/21 03:07 99 05/30/21 02:22 98 05/30/21 01:45 05/30/21 01:10 98 05/30/21 00:10 97 05/29/21 23:40 05/29/21 23:39 100 05/29/21 23:24 98 05/29/21 23:07 97 05/29/21 23:02 all noted and reviewed including below
--- NOTE | 2021-05-30 10:47 | Discharge Summary ---
Date of Service May 30, 2021 Admission HPI Per Admitting Provider HISTORY OF PRESENT ILLNESS: This is an 81-year-old female with past medical history significant for hyperlipidemia, history of mitral valve disorder, coronary atherosclerosis of [place] coronary artery, presents with GI bleed. The patient is from [facility]. She is visiting [place] for [employer]. Today when she woke up, she felt dizzy. When she went to the bathroom, she almost passed out, and at that time she had noticed some small black stools, but later again she had a loose black stool and a couple more episodes and she went to [facility] and she was advised to come here. Currently, resting comfortably and hemodynamically stable. Complains of abdominal cramps. Hemoglobin is 10. We do not have any baseline labs. Denies any chest pain, no shortness of breath, no cough, no fevers. Currently no headache, no blurred visions, no earache, no runny nose, no sore throat. Has some nausea. Otherwise, before this episode her bowels were normal, normal bladder movements. She has osteoarthritis of the knees. She has difficulty to climb stairs . Walking in the level floor is fine. Admission Exam Per Admitting Provider GENERAL: The patient is of moderate build, not in acute distress. VITAL SIGNS: Temperature 37, pulse 99, respiratory rate 20, blood pressure 148/69, oxygen 98% on room air. HEENT: Pupils equal, round and reactive to light. Oral mucosa dry. NECK: No JVD. No neck masses. CARDIOVASCULAR: S1 and S2 heard. Regular rate and rhythm. No murmur, no gallop. RESPIRATORY SYSTEM: Normal AP diameter. No accessory muscle use. No wheezing, no crackles. ABDOMEN: Soft, bowel sounds present, nontender, no distention. CENTRAL NERVOUS SYSTEM: Cranial nerves II-XII grossly intact, nonfocal. EXTREMITIES: No edema, no erythema. Principal Diagnosis ACUTE UPPER GASTROINTESTINAL BLEEDING SECONDARY TO GASTRIC ULCER ANEMIA, SECONDARY TO ACUTE BLOOD LOSS Discharge Exam General- oriented x 3, not in distress, speaks in sentences with no effort or accessory muscle use Eyes- anicteric Neck- no JVD Lungs- clear breath sounds bilaterally, no rales/wheezes Heart- normal rate, regular rhythm; no murmurs Abdomen- normal bowel sounds, nondistended, soft, nontender Extremities- no pretibial edema, no calf tenderness Neuro- alert, oriented x 3; no gross focal neurologic deficits Skin- warm & dry Discharge Data Allergies Allergy/AdvReac Type Severity Reaction Status Date / Time STEROIDS Allergy Unknown Uncoded 05/28/21 22:26 Consultations 05/28/21 23:31 ED Decision to Admit Stat 05/29/21 08:00 Consult Gastroenterology Routine Procedures Performed Operation Date: 05/29/21 16:00 Actual Procedures p Esophagogastroduodenoscopy(Not Applicable) - Cecy Roberson DO Ordered Studies 05/28/21 20:37 CT abd pelvis wo con Urgent COMPARISON STUDY: None. FINDINGS: Punctate calcified granuloma within the left lower lobe. Otherwise, the lung bases are clear. No suspicious lytic or blastic osseous lesions. The unenhanced liver, spleen, adrenal glands, and pancreas are unremarkable. No renal stones or hydronephrosis. No retroperitoneal lymphadenopathy. Normal caliber abdominal aorta with mild calcified plaque. Questionable increased density layering within the gallbladder. This could represent small stones or artifact. The bladder, uterus, and bilateral adnexa are within normal limits. No pelvic free fluid. Suboptimal evaluation for bowel pathology due to the lack of intravenous and oral contrast. Colonic diverticulosis. No evidence for acute diverticulitis. The appendix is not identified and reportedly surgically absent. Mild thickening involving a jejunal loop within the left side of the abdomen concerning for an enteritis. There are few mildly dilated gas and fluid-filled loops of small bowel within the midabdomen. No definite transition point. IMPRESSION: 1. Mildly thickened long segment of jejunum likely representing an enteritis within the left side of the abdomen. 2. There are few mildly dilated gas and fluid-filled loops of small bowel within the midabdomen. No definite transition point. Therefore, this could represent an ileus or possibly a low-grade partial small bowel obstruction. Consider follow- up abdomen and pelvis CT if the patient's symptoms progress. 3. Possible cholelithiasis. No gallbladder wall thickening. Hospital Course (1) Upper gastrointestinal hemorrhage: (2) Acute blood loss anemia: ASSESSMENT AND PLAN: This is an 81-year-old female who presents with gastrointestinal bleed. 1. Gastrointestinal bleed, melena: -- placed on Protonix drip -- s/p EGD by Dr. Cecy Roberson (+) clean-based ulcer of the gastric antrum which required no endoscopic intervention. GI recommendations: Protonix 40 mg twice daily for 4 weeks then 1 time daily thereafter Avoid use of nonsteroidals to include Mobic for 6 weeks to allow for ulcer healing Repeat upper endoscopy with the patient's normal GI provider in [place] to be done in 3 months Acute Blood Loss Anemia -- secondary to above -- Hg 10, 8, 7.8 given 1 unit of PRBC -- Hg improved to 9 -- iron level normal -- repeat CBC next week on ff up with PCP 2. History of hyperlipidemia -- on statin 3. History of osteoarthritis -- PRN Tylenol or tramadol. 4. History of atherosclerosis: Hold aspirin for at least 6 weeks 5. History of mitral valve disease: Follows with cardiology, seems mild. 6. Deep venous thrombosis prophylaxis: Sequential compression devices given. Disposition d/c home today if patient tolerates soft diet plan of care discussed with patient in detail and at length all questions answered she is understanding, agreeable, comfortable with the plan of care Total Time Total Time Spent Total Time Spent (In Minutes): 40 minutes Discharge Plan Discharge Items Patient Disposition: Home - Self-Care Reason For Visit: GI BLEED Discharge Diagnosis: UPPER GASTROINTESTINAL BLEEDING SECONDARY TO STOMACH ULCER Activity: As commented below Activity Comment: RESUME ACTIVITY GRADUALLY TOLERATED Lifting: Wait until after follow-up appointment Exercise/Sports: Wait until after follow-up appointment Driving/Machine Use: NO DRIVING UNTIL RE-EVALUATED AND ALLOWED BY PRIMARY CARE PHYSICIAN Non-emergency contact: Primary Care Provider Call non-emergency contact if: you have any medication questions, your symptoms worsen, your pain is not controlled, your pain is worsening, your pain is unusual for you, your pain is concerning for you and you have a fever Follow-up/Referrals: PCP,KEEGAN [Primary Care Provider] - Diet: Heart Healthy Addtl Attending Provider Instructions: PLEASE REVIEW YOUR NEW MEDICATION LIST AND FOLLOW INSTRUCTIONS CAREFULLY. YOUR NEW MEDICATIONS INCLUDE: PROTONIX- ACID SUPPRESSANT TO PROMOTE HEALING OF STOMACH ULCER TAKE AT LEAST 30 MINUTES BEFORE MEAL FOR BETTER ABSORPTION TRAMADOL- PAIN MEDICATION NEEDED FOR MODERATE TO SEVERE ARTHRITIS PAIN TYLENOL- NEEDED FOR MILD PAIN NO MEDICATIONS UNDER THE CLASS OF NSAID'S (EXAMPLE: ASPIRIN, MELOXICAM, IBUPROFEN, NAPROXEN) FOR AT LEAST 6 WEEKS. YOU NEED TO HAVE ANOTHER UPPER GI ENDOSCOPY IN 3 MONTHS TO CHECK FOR HEALING OF THE ULCER. FOLLOW UP WITH PRIMARY CARE PHYSICIAN IN 1 WEEK. Pending Studies at Discharge: Yes Studies:: REPEAT BLOOD WORK- COMPLETE BLOOD COUNT IN 1 WEEEK C/O PRIMARY CARE PHYSICIAN REPEAT UPPER GI ENDOSCOPY IN 3 MONTHS. Stand-Alone Forms: My [facility] [place], Smoking Cessation Medications and DC Order Prescriptions: New pantoprazole [Protonix] 40 mg tablet,delayed release (DR/EC) 40 mg PO BID Qty: 60 RF: 2 tramadol 50 mg tablet 50 mg PO Q6H PRN (Reason: moderate to severe pain) Qty: 20 RF: 0 acetaminophen [Tylenol Arthritis Pain] 650 mg tablet extended release 650 mg PO Q8H PRN (Reason: fever) Qty: 30 RF: 0 Continued garlic 1,000 mg Capsule 1,000 mg PO BID RF: 0 calcium carbonate 600 mg calcium (1,500 mg) Tablet 600 mg PO DAILY RF: 0 ergocalciferol (vitamin D2) [Vitamin D2] 1,250 mcg (50,000 unit) Capsule 1,250 mcg PO WK RF: 0 glucosamine-chondroitin [Osteo Bi-Flex] 250-200 mg Tablet 1 tab PO DAILY RF: 0 omega-3 fatty acids Capsule 0 mg PO DAILY RF: 0 atorvastatin 20 mg Tablet 20 mg PO DAILY RF: 0 Discontinued meloxicam 15 mg Tablet 15 mg PO DAILY RF: 0 aspirin [Aspir-Low] 81 mg Tablet,Delayed Release (Dr/Ec) 81 mg PO DAILY RF: 0 Discharge Orders: Discharge Order (Routine); Ordered 05/30/21 Ordered By: Elian Ashley Admission Data Admit Date/Time: 05/28/21 23:55 Attending Provider: Elian Ashley Admit Provider: Chema Diaz Primary Care Provider: PCP,NO Other Providers: Chema Diaz ; Jaelyn Bazzi ; Leonor Carcamo ; Ria Hannon ; Vera Pina ; Asa Cross ; Cecy Roberson ; Judith Parker ; Abraham Lindsay ; Chelsey Carbajal ; Lea Momin ; Aidee Hernandez ; Ann Marie Rodriguez ; Tran Leblanc Other Interventions: Discharge Summary Assessment (RN) Last Done: 05/30/21 13:54
== END 2021-05-30 14:54 | disposition home or self-care (01) | DRG 378 ==
LOC: ED 18:44 → 2S 23:55 → 2N 05-29 19:58
DX: I25.10 Atherosclerotic heart disease of native coronary artery without angina pectoris; E78.5 Hyperlipidemia, unspecified; Z79.82 Long term (current) use of aspirin; D62 Acute posthemorrhagic anemia; K25.4 Chronic or unspecified gastric ulcer with hemorrhage